=== PATIENT | male | born 2000 | race Caucasian/White ===

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

== ENCOUNTER 2022-02-08 12:30 | Emergency (ER) | payer BC ==
[~2022-02-08] VITALS: Ht 173 cm; Wt 54.4 kg
[2022-02-08 12:48] VITALS: BP 124/85
--- NOTE | 2022-02-08 13:31 | Diagnostic Imaging Report ---
EXAM: FINGER(S) INDICATION: Right thumb injury and pain. COMPARISON: None. FINDINGS: No fracture or malalignment. Soft tissue shadows are unremarkable. IMPRESSION: Negative right thumb radiographs. Dictated by: Dictated on workstation # [id number]
--- NOTE | 2022-02-08 13:38 | ED Upper Extremity ---
General Chief Complaint: Upper Extremity Stated Complaint: RIGHT THUMB INJURY Nursing Triage Note: pt ambulatory to room. pt states he was fishing approx 30 mins ago when his line got caught on a tree, sprung back, and the weight on the line hit his right thumb knuckle. no fish hook involvement. Source: patient Exam Limitations: no limitations History of Present Illness Date Seen by Provider: Feb 08, 2022 Time Seen by Provider: 13:36 Allergies and Home Medications Allergies Coded Allergies: diphenhydramine (Unverified Allergy, Unknown, 03/01/14) difficulty breathing ibuprofen (Verified Allergy, Unknown, 07/01/17) oseltamivir phosphate (Unverified Allergy, Unknown, 09/13/13) Patient Home Medication List Albuterol Sulfate (Albuterol Sulfate) 2.5 Mg/3 Ml Vial.neb, 2.5 MG IH Q4H PRN for SHORTNESS OF BREATH Prescribed by: CRISTOPHER CUMMINS on 07/01/17 182 Budesonide (Budesonide) 0.5 Mg/2 Ml Ampul.neb, 2 ML INH BID, (Reported) Entered as Reported by: MRAIANA MALONE on 08/05/15 194 Cromolyn Sodium (Cromolyn Sodium) 20 Mg/1 Ml Solution, (Reported) Entered as Reported by: DAWIT ROSAS on 09/24/172319 Fludrocortisone Acetate (Fludrocortisone Acetate) 0.1 Mg Tab, (Reported) Entered as Reported by: DAWIT ROSAS on 09/24/17 232 Hyoscyamine Sulfate (Levsin-Sl) 0.125 Mg Tab.subl, 0.125 MG SL Q6H PRN for SPASMS Prescribed by: CRISTOPHER CUMMINS on 04/06/16 171 Hyoscyamine Sulfate (Hyoscyamine Sulfate) 0.125 Mg Tab.subl, 0.125 MG SL Q4H PRN for CRAMPS Prescribed by: RD VERAS on 02/29/202019 Ipratropium/Albuterol Sulfate (Iprat-Albut 0.5-3(2.5) mg/3 ml) 3 Ml Ampul.neb, 3 ML IH Q6H PRN for SHORTNESS OF BREATH Prescribed by: LIU COPELAND on 08/05/15 231 Levalbuterol HCl (Levalbuterol HCl) 0.63 Mg/3 Ml Vial.neb, 0.63 MG IH BID, (Reported) Entered as Reported by: MARIANA MALONE on 08/05/151945 Levocetirizine Dihydrochloride (Levocetirizine Dihydrochloride) 5 Mg Tablet, 5 MG PO DAILY, (Reported) Entered as Reported by: LO GRAY on 03/01/142235 Levocetirizine Dihydrochloride (Xyzal) 5 Mg Tablet, 5 MG PO DAILY, (Reported) Entered as Reported by: MARIANA MALONE on 08/05/151945 Omeprazole (Omeprazole) 40 Mg Capsule.dr, 40 MG PO DAILY Prescribed by: CRISTOPHER CUMMINS on 04/06/16 171 Prednisone (Prednisone) 20 Mg Tab, 20 MG PO BID Prescribed by: LIU COPELAND on 08/05/15 231 Prednisone (Prednisone) 20 Mg Tab, 40 MG PO DAILY Prescribed by: CRISTOPHER CUMMINS on 07/01/171822 Promethazine HCl/Codeine (Promethazine-Codeine Syrup) 118 Ml Syrup, 5 ML PO Q6H PRN for COUGH Prescribed by: CRISTOPHER CUMMINS on 07/01/171822 Topiramate (Topiramate) 25 Mg Tablet, 1 TAB PO BID, (Reported) Entered as Reported by: MARIANA MALONE on 08/05/151945 Past Ogvzwrq-Sgvpqb-Hftqiw Hx Immunizations Up To Date Tetanus Booster (TDap): More than 5yrs PED Vaccines UTD: Yes Seasonal Allergies Seasonal Allergies: Yes Past Medical History Surgeries: Yes (HEART ABLATION) Abdominal, Adenoidectomy, Ear Surgery, Orthopedic, Tonsillectomy Respiratory: No Asthma Currently Using CPAP: No Currently Using BIPAP: No Cardiac: Yes Irregular Heartbeat Neurological: No Reproductive Disorders: No Sexually Transmitted Disease: No HIV/AIDS: No Genitourinary: No Gastrointestinal: Yes Ulcer Musculoskeletal: No Fractures Endocrine: No HEENT: No Chronic Ear Infection, Tonsilitis Hearing Impairment: Denies Cancer: No Psychosocial: No Integumentary: No Blood Disorders: No Family Medical History Alcoholism 03 FATHER (grandfather and grandmother) Cancer 03 FATHER (grandparent) 03 MOTHER (grandfather) Family history: Arthritis 03 FATHER (grandfather) History of drug abuse 03 FATHER (grandparents ETOH:) Kidney disease 03 FATHER (father kidney stones) No Family History of: Abdominal aortic aneurysm Aphasia Cancer of colon Cataract Chest pain Congenital heart disease Congestive heart failure Cystic fibrosis Dementia Dysphagia Family history: Allergy Family history: Alzheimer's disease Family history: Asthma Family history: Cardiovascular disease Family history: Coronary thrombosis Family history: Diabetes mellitus Family history: Gastrointestinal disease Family history: Glaucoma Family history: Hypertension Family history: Osteoporosis Family history: Thyroid disorder Hearing loss Human immunodeficiency virus (HIV) seropositivity Hypercholesterolemia Infertile Myocardial infarction Parkinson's disease Prostate cancer Psychotic disorder Seizure disorder Stroke Tuberculosis Visual impairment No Pertinent Family Hx Physical Exam Vital Signs Vital Signs - First Documented 02/08/22 12:48 Temp 36.7 Pulse 98 Resp 16 B/P (MAP) 124/85 (98) Pulse Ox 98 Capillary Refill : Height, Weight, BMI Height: 5'10.00" Weight: 140lbs. oz. 63.888465js; 18.00 BMI Method:Stated Progress/Results/Core Measures Results/Orders My Orders Orders - LEDA COOMBS APRN Finger(S) (02/08/22 12:42) Vital Signs/I&O 02/08/22 12:48 Temp 36.7 Pulse 98 Resp 16 B/P (MAP) 124/85 (98) Pulse Ox 98 Blood Pressure Mean: 98 Departure Impression Primary Impression: Contusion of thumb, right Disposition: 01 HOME, SELF-CARE Condition: Improved Departure-Patient Inst. Decision time for Depature: 13:37 Referrals: NO,LOCAL PHYSICIAN (PCP/Family) Primary Care Physician Patient Instructions: Contusion (DC) Add. Discharge Instructions: Plan: 1. Discharge home. 2. Keep affected site elevated above your heart over the next 72 hours to reduce swelling and pain. This is when the most swelling will occur. 3. If extremity becomes numb, cold, more painful, blanched or discolored or excessively swollen, contact your physician or return to the ER. 4. May take Tylenol or Ibuprofen as needed for pain per package. 5. Return to ER for any new, concerning, or worsening symptoms. All discharge instructions reviewed with patient and/or family. Voiced understanding. LEDA COOMBS APRN Feb 08, 2022 13:38
== END 2022-02-08 14:07 | disposition home or self-care (01) ==
LOC: EDUNIT# 12:30 → ER 12:33
DX: S60.011A Contusion of right thumb without damage to nail, initial encounter (principal); Z28.310 Unvaccinated for COVID-19; W22.8XXA Striking against or struck by other objects, initial encounter
CPT/HCPCS: 73140

== ENCOUNTER 2022-09-14 18:30 | Emergency (ER) | payer BC ==
[~2022-09-14] VITALS: Ht 175 cm; Wt 52.0 kg
--- NOTE | 2022-09-14 18:52 | ED Chest Pain ---
General Chief Complaint: Chest Pain Stated Complaint: CHEST PAIN Nursing Triage Note: PT AMB TO RM 3 PT CO OF INTERMITTENT CHEST PAIN FOR APPROX 2 DAYS, PT HAS HX OF SVT AND HAS HAD AN ABLATION APPROX 4 YEARS AGO. PT RATES PAIN 4/10 LAST FOR ONLY A FEW SECONDS, STATES FEELS LIKE HEART IS FALLING DOWN IN CHEST. PAST 2 DAYS HAS HAD SOA. PT HAS BEEN TRAVELING IN CAR APPROX 10 HOURS TODAY Source: patient Exam Limitations: no limitations (BRIA GARG APRN) History of Present Illness Date Seen by Provider: Sep 14, 2022 Time Seen by Provider: 18:35 Initial Comments 22-year-old male presents to the ED with complaints of intermittent left sided chest pain over the last 2 days. Reports the pain feels like a pulled muscle, states it only lasts about a minute at a time. Reports feeling sweaty with the chest pain. He currently does not have any pain. He also reports feeling like his heart rate drops when he is walking around. When this happens he feels lightheaded and feels like he needs to cough. Denies fevers, abdominal pain, vomiting. Reports feeling shortness of air yesterday, none today. Reports some nausea. Past medical history includes asthma, SVT, abdominal issues including C. difficile multiple times, H. pylori, IBS. He has had an ablation for SVT 4 years ago and multiple colonoscopies. (BRIA GARG APRN) Allergies and Home Medications Allergies Coded Allergies: diphenhydramine (Unverified Allergy, Unknown, 03/01/14) difficulty breathing ibuprofen (Verified Allergy, Unknown, 07/01/17) oseltamivir phosphate (Unverified Allergy, Unknown, 09/13/13) Patient Home Medication List Home Medication List Reviewed: Yes (BRIA GARG APRN) Home Medication List Reviewed: Yes (BARB MARMOLEJO DO) Albuterol Sulfate (Albuterol Sulfate) 2.5 Mg/3 Ml Vial.neb, 2.5 MG IH Q4H PRN for SHORTNESS OF BREATH Prescribed by: CRISTOPHER CUMMINS on 07/01/171822 Budesonide (Budesonide) 0.5 Mg/2 Ml Ampul.neb, 2 ML INH BID, (Reported) Entered as Reported by: MARIANA MALONE on 08/05/151945 Cromolyn Sodium (Cromolyn Sodium) 20 Mg/1 Ml Solution, (Reported) Entered as Reported by: DAWIT ROSAS on 09/24/172319 Fludrocortisone Acetate (Fludrocortisone Acetate) 0.1 Mg Tab, (Reported) Entered as Reported by: DAWIT ROSAS on 09/24/172319 Hyoscyamine Sulfate (Levsin-Sl) 0.125 Mg Tab.subl, 0.125 MG SL Q6H PRN for SPASMS Prescribed by: CRISTOPHER CUMMINS on 04/06/161715 Hyoscyamine Sulfate (Hyoscyamine Sulfate) 0.125 Mg Tab.subl, 0.125 MG SL Q4H PRN for CRAMPS Prescribed by: DR VERAS on 02/29/202019 Ipratropium/Albuterol Sulfate (Iprat-Albut 0.5-3(2.5) mg/3 ml) 3 Ml Ampul.neb, 3 ML IH Q6H PRN for SHORTNESS OF BREATH Prescribed by: LIU COPELAND on 08/05/152314 Levalbuterol HCl (Levalbuterol HCl) 0.63 Mg/3 Ml Vial.neb, 0.63 MG IH BID, (Reported) Entered as Reported by: MARIANA MALONE on 08/05/151945 Levocetirizine Dihydrochloride (Levocetirizine Dihydrochloride) 5 Mg Tablet, 5 MG PO DAILY, (Reported) Entered as Reported by: LO GRAY on 03/01/142235 Levocetirizine Dihydrochloride (Xyzal) 5 Mg Tablet, 5 MG PO DAILY, (Reported) Entered as Reported by: MARIANA MALONE on 08/05/151945 Omeprazole (Omeprazole) 40 Mg Capsule.dr, 40 MG PO DAILY Prescribed by: CRISTOPHER CUMMINS on 04/06/161715 Prednisone (Prednisone) 20 Mg Tab, 20 MG PO BID Prescribed by: LIU COPELAND on 08/05/152314 Prednisone (Prednisone) 20 Mg Tab, 40 MG PO DAILY Prescribed by: CRISTOPHER CUMMINS on 07/01/171822 Promethazine HCl/Codeine (Promethazine-Codeine Syrup) 118 Ml Syrup, 5 ML PO Q6H PRN for COUGH Prescribed by: CRISTOPHER CUMMINS on 07/01/171822 Topiramate (Topiramate) 25 Mg Tablet, 1 TAB PO BID, (Reported) Entered as Reported by: MARIANA MALONE on 08/05/151945 Review of Systems Review of Systems Constitutional: see HPI (BRIA GARG APRN) Past Hbosofb-Lrxibo-Kxpegk Hx Patient Social History Tobacco Use?: No Substance use?: No Alcohol Use?: No Pt feels they are or have been: No (BRIA GARG APRN) Immunizations Up To Date Tetanus Booster (TDap): More than 5yrs PED Vaccines UTD: Yes Influenza Vaccine Up-to-Date: No; Not Current (BRIA GARG APRN) Seasonal Allergies Seasonal Allergies: Yes (BRIA GARG APRN) Past Medical History Surgery/Hospitalization HX: HEART ABLATION, T AND A Surgeries: Yes (HEART ABLATION) Abdominal, Adenoidectomy, Ear Surgery, Orthopedic, Tonsillectomy Respiratory: No Asthma Currently Using CPAP: No Currently Using BIPAP: No Cardiac: Yes Irregular Heartbeat Neurological: No Reproductive Disorders: No Sexually Transmitted Disease: No HIV/AIDS: No Genitourinary: No Gastrointestinal: Yes Ulcer Musculoskeletal: No Fractures Endocrine: No HEENT: No Chronic Ear Infection, Tonsilitis Hearing Impairment: Denies Cancer: No Psychosocial: No Integumentary: No Blood Disorders: No (BRIA GARG APRN) Family Medical History Alcoholism 03 FATHER (grandfather and grandmother) Cancer 03 FATHER (grandparent) 03 MOTHER (grandfather) Family history: Arthritis 03 FATHER (grandfather) History of drug abuse 03 FATHER (grandparents ETOH:) Kidney disease 03 FATHER (father kidney stones) No Family History of: Abdominal aortic aneurysm Aphasia Cancer of colon Cataract Chest pain Congenital heart disease Congestive heart failure Cystic fibrosis Dementia Dysphagia Family history: Allergy Family history: Alzheimer's disease Family history: Asthma Family history: Cardiovascular disease Family history: Coronary thrombosis Family history: Diabetes mellitus Family history: Gastrointestinal disease Family history: Glaucoma Family history: Hypertension Family history: Osteoporosis Family history: Thyroid disorder Hearing loss Human immunodeficiency virus (HIV) seropositivity Hypercholesterolemia Infertile Myocardial infarction Parkinson's disease Prostate cancer Psychotic disorder Seizure disorder Stroke Tuberculosis Visual impairment No Pertinent Family Hx (BRIA GARG APRN) Physical Exam Vital Signs Vital Signs - First Documented 09/14/22 18:30 Temp 36.6 Pulse 94 Resp 16 B/P (MAP) 155/93 (113) Pulse Ox 99 (JALEELBARB Ezio DO) Vital Signs Capillary Refill : NONE (BRIA GARG APRN) Height, Weight, BMI Height: 5'10.00" Weight: 140lbs. oz. 63.846621ty; 16.00 BMI Method:Stated General Appearance: No Apparent Distress, WD/WN Neck: Non Tender, Supple Respiratory: Chest Non Tender, Lungs Clear, Normal Breath Sounds, No Accessory Muscle Use, No Respiratory Distress Cardiovascular: Regular Rate, Rhythm, No Edema, No Gallop, No JVD, No Murmur Extremity: Normal Capillary Refill, Normal Range of Motion 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: Alert, No Motor/Sensory Deficits Skin: Normal Color, Warm/Dry (BRIA GARG APRN) Progress/Results/Core Measures Results/Orders Lab Results Laboratory Tests Test 09/14/22 18:39 09/14/22 21:21 Range/Units White Blood Count 5.4 4.3-11.0 10^3/uL Red Blood Count 5.07 4.30-5.52 10^6/uL Hemoglobin 15.2 13.3-17.7 g/dL Hematocrit 44 40-54 % Mean Corpuscular Volume 87 80-99 fL Mean Corpuscular Hemoglobin 30 25-34 pg Mean Corpuscular Hemoglobin Concent 35 32-36 g/dL Red Cell Distribution Width 11.8 10.0-14.5 % Platelet Count 201 130-400 10^3/uL Mean Platelet Volume 11.5 9.0-12.2 fL Immature Granulocyte % (Auto) 0 % Neutrophils (%) (Auto) 58 42-75 % Lymphocytes (%) (Auto) 34 12-44 % Monocytes (%) (Auto) 7 0-12 % Eosinophils (%) (Auto) 1 0-10 % Basophils (%) (Auto) 0 0-10 % Neutrophils # (Auto) 3.1 1.8-7.8 10^3/uL Lymphocytes # (Auto) 1.8 1.0-4.0 10^3/uL Monocytes # (Auto) 0.4 0.0-1.0 10^3/uL Eosinophils # (Auto) 0.1 0.0-0.3 10^3/uL Basophils # (Auto) 0.0 0.0-0.1 10^3/uL Immature Granulocyte # (Auto) 0.0 0.0-0.1 10^3/uL Prothrombin Time 13.6 12.2-14.7 SEC INR Comment 1.0 0.8-1.4 Activated Partial Thromboplast Time 34 24-35 SEC D-Dimer <= 0.27 0.00-0.49 UG/ML Sodium Level 140 135-145 MMOL/L Potassium Level 3.7 3.6-5.0 MMOL/L Chloride Level 105 98-107 MMOL/L Carbon Dioxide Level 23 21-32 MMOL/L Anion Gap 12 5-14 MMOL/L Blood Urea Nitrogen 11 7-18 MG/DL Creatinine 0.92 0.60-1.30 MG/DL Estimat Glomerular Filtration Rate 122 BUN/Creatinine Ratio 12 Glucose Level 89 70-105 MG/DL Calcium Level 9.3 8.5-10.1 MG/DL Corrected Calcium 8.5-10.1 MG/DL Magnesium Level 2.4 1.6-2.4 MG/DL Total Bilirubin 0.9 0.1-1.0 MG/DL Aspartate Amino Transf (AST/SGOT) 17 5-34 U/L Alanine Aminotransferase (ALT/SGPT) 15 0-55 U/L Alkaline Phosphatase 60 40-136 U/L Troponin I < 0.028 < 0.028 <0.028 NG/ML Total Protein 7.1 6.4-8.2 GM/DL Albumin 4.7 H 3.2-4.5 GM/DL (JALEEL,BARB K DO) Vital Signs/I&O 09/14/22 18:30 Temp 36.6 Pulse 94 Resp 16 B/P (MAP) 155/93 (113) Pulse Ox 99 (JALEEL,BARB K DO) Blood Pressure Mean: 113 Progress Progress Note : Time: 18:52 Progress Note Patient seen and evaluated, resting comfortably bed, no acute distress. Based on exam and symptoms, work-up initially including CBC, CMP, magnesium, coags, troponin, D-dimer, chest x-ray. 2049 Labs reviewed. CBC grossly normal. CMP grossly normal. Magnesium normal2.4. Coas normal. D-dimer negative. Inital troponin negative. Will repeat 3-hour troponin at 2130. X-ray reviewed, no acute abnormalities. Results discussed with patient and father. (BRIA GARG APRN) Progress Note : Progress Note 2100--ASSUMED CARE OF PT AT END OF SHIFT. REPEAT TROPONIN IS PENDING. PT IS SYMPTOM-FREE AT THIS TIME. VITALS ARE STABLE. 2210--REPEAT TROPONIN IS NEGATIVE. PT IS SYMPTOM-FREE, HE HAS NORMAL VITALS, AND NO ARRHYTHMIAS. REVIEWED PRIOR RECORDS, INCLUDING ER VISITS, TESTS/PROCEDURES DISCUSSED TEST RESULTS WITH PT AND FATHER, THEY FEEL COMFORTABLE GOING HOME (BARB MARMOLEJO DO) Initial ECG Impression Date: Sep 14, 2022 Initial ECG Impression Time: 18:36 Initial ECG Rate: 86 Initial ECG Rhythm: Normal Sinus Initial ECG Intervals: Normal Initial ECG Impression: Normal Initial ECG Comparisson: Unchanged (BRIA GARG APRN) Diagnostic Imaging Diagonstic Imaging: Xray Plain Films/CT/US/NM/MRI: chest Comments [facility], [place] NAME: ROSANNE KIRBY [facility] REC#: [id number] PT STATUS: REG ER : 2002 PHYSICIAN: BRIA GARG APRN ADMIT DATE: 09/14/22/ER Signed Date of Exam:09/14/22 CHEST 1 VIEW, AP/PA ONLY EXAMINATION: Chest 1 view. HISTORY: Chest pain. COMPARISON: 07/30/2017. FINDINGS: The lungs are clear without edema or pneumonia. No pleural effusion or pneumothorax. Heart size is normal. IMPRESSION: Clear lungs. Dictated by: Dictated on workstation # [id number] Dict: 09/14/221929 Trans: 09/14/222010 PJE [id number] Interpreted by: GRAYSON CORCORAN MD Electronically signed by: GRAYSON CORCORAN MD 09/14/222010 (BRIA GARG APRN) Departure Impression Primary Impression: Chest pain Additional Impression: HX OF SVT--S/P ABLATION Disposition: 01 HOME, SELF-CARE Condition: Stable Departure-Patient Inst. Decision time for Depature: 22:15 (BARB MARMOLEJO DO) Referrals: NO,LOCAL PHYSICIAN (PCP/Family) Primary Care Physician Patient Instructions: Chest Pain, Adult ED Add. Discharge Instructions: HOME, REST NO STRENUOUS ACTIVITY FOR THE NEXT 2 DAYS, IF YOU ARE SYMPTOM-FREE, THEN YOU MAY RETURN TO NORMAL ACTIVITIES ON THURSDAY RETURN TO ER IF SYMPTOMS RETURN All discharge instructions reviewed with patient and/or family. Voiced understanding. BRIA GARG APRN Sep 14, 2022 18:52 BARB MARMOLEJO DO Sep 14, 2022 21:51
[2022-09-14 18:54] LABS: BASOPHILS % (AUTO) 0 % (0-10); EOSINOPHILS # (AUTO) 0.1 10^3/uL (0.0-0.3); EOSINOPHILS % (AUTO) 1 % (0-10); HEMATOCRIT 44 % (40-54); HEMOGLOBIN 15.2 g/dL (13.3-17.7); LYMPHOCYTES # (AUTO) 1.8 10^3/uL (1.0-4.0); LYMPHOCYTES % (AUTO) 34 % (12-44); MEAN CORPUSCULAR HEMOGLOBIN 30 pg (25-34); MEAN CORPUSCULAR HGB CONC 35 g/dL (32-36); MEAN CORPUSCULAR VOLUME 87 fL (80-99); MEAN PLATELET VOLUME 11.5 fL (9.0-12.2); MONOCYTES # (AUTO) 0.4 10^3/uL (0.0-1.0); MONOCYTES % (AUTO) 7 % (0-12); NEUTROPHILS # (AUTO) 3.1 10^3/uL (1.8-7.8); NEUTROPHILS % (AUTO) 58 % (42-75); PLATELET COUNT 201 10^3/uL (130-400); WHITE BLOOD COUNT 5.4 10^3/uL (4.3-11.0)
[2022-09-14 18:57] LABS: ALBUMIN 4.7 GM/DL (3.2-4.5); CHLORIDE 105 MMOL/L (98-107); POTASSIUM 3.7 MMOL/L (3.6-5.0); SODIUM 140 MMOL/L (135-145)
[2022-09-14 18:59] LABS: CALCIUM 9.3 MG/DL (8.5-10.1)
[2022-09-14 19:00] LABS: GLUCOSE 89 MG/DL (70-105); TOTAL PROTEIN 7.1 GM/DL (6.4-8.2)
[2022-09-14 19:01] LABS: CARBON DIOXIDE 23 MMOL/L (21-32)
[2022-09-14 19:02] LABS: BILIRUBIN,TOTAL 0.9 MG/DL (0.1-1.0)
[2022-09-14 19:03] LABS: ALKALINE PHOSPHATASE 60 U/L (40-136); CREATININE SERUM 0.92 MG/DL (0.60-1.30); GFR ESTIMATED 122
[2022-09-14 19:04] LABS: BUN/CREATININE RATIO 12
[2022-09-14 19:06] LABS: ALANINE AMINOTRANSFERASE 15 U/L (0-55); MAGNESIUM 2.4 MG/DL (1.6-2.4)
[2022-09-14 19:08] LABS: PROTHROMBIN TIME PATIENT 13.6 SEC (12.2-14.7)
--- NOTE | 2022-09-14 19:33 | Diagnostic Imaging Report ---
EXAMINATION: Chest 1 view. HISTORY: Chest pain. COMPARISON: 07/30/2017. FINDINGS: The lungs are clear without edema or pneumonia. No pleural effusion or pneumothorax. Heart size is normal. IMPRESSION: Clear lungs. Dictated by: Dictated on workstation # [id number]
[2022-09-14 22:27] VITALS: BP 122/76
== END 2022-09-14 22:27 | disposition home or self-care (01) ==
LOC: EDUNIT# 18:30 → ER 18:31
DX: R07.89 Other chest pain (principal); R11.0 Nausea; Z86.79 Personal history of other diseases of the circulatory system; Z98.890 Other specified postprocedural states
CPT/HCPCS: 36415; 71045; 80053; 83735; 84484; 85025; 85379; 85610; 85730; 93005; 93041

== ENCOUNTER 2022-12-12 00:40 | Emergency (ER) | payer BC | END 2022-12-12 01:02 | disposition left against medical advice (07) | LOC: EDUNIT# 00:40 → ER 00:45 | DX: R10.9 Unspecified abdominal pain (principal) ==

== ENCOUNTER 2022-12-16 08:45 | Emergency (ER) | payer BC ==
[~2022-12-16] VITALS: Ht 175 cm; Wt 55.0 kg
--- NOTE | 2022-12-16 08:55 | ED EENT ---
History of Present Illness General Chief Complaint: Ear Problems Stated Complaint: RIGHT EAR PAIN Source: patient Exam Limitations: no limitations History of Present Illness Date Seen by Provider: Dec 16, 2022 Time Seen by Provider: 08:54 Initial Comments Patient is a 22-year-old male who presents to the emergency department with a chief complaint of severe right ear pain. He went swimming on Thursday and got water in his ear. He states he was fine until last evening when he sneezed or coughed and had acute onset of ear pain. He states he was unable to sleep last night due to the pain. Denies fevers or chills. He does take allergy medications. He did take a Tylenol last night. Dad is with him and states that he had ear tubes as a small child. Timing/Duration: abrupt Location: ear (R) Prearrival Treatment: no prearrival treatment Associated Symptoms: change in hearing Allergies and Home Medications Allergies Coded Allergies: diphenhydramine (Unverified Allergy, Unknown, 03/01/14) difficulty breathing ibuprofen (Verified Allergy, Unknown, 07/01/17) oseltamivir phosphate (Unverified Allergy, Unknown, 09/13/13) Patient Home Medication List Home Medication List Reviewed: Yes Albuterol Sulfate (Albuterol Sulfate) 2.5 Mg/3 Ml Vial.neb, 2.5 MG IH Q4H PRN for SHORTNESS OF BREATH Prescribed by: CRISTOPHER CUMMINS on 07/01/171822 Budesonide (Budesonide) 0.5 Mg/2 Ml Ampul.neb, 2 ML INH BID, (Reported) Entered as Reported by: MARIANA MALONE on 08/05/15 194 Cromolyn Sodium (Cromolyn Sodium) 20 Mg/1 Ml Solution, (Reported) Entered as Reported by: DAWIT ROSAS on 09/24/17 232 Fludrocortisone Acetate (Fludrocortisone Acetate) 0.1 Mg Tab, (Reported) Entered as Reported by: DAWIT ROSAS on 09/24/17 232 Hyoscyamine Sulfate (Levsin-Sl) 0.125 Mg Tab.subl, 0.125 MG SL Q6H PRN for SPASMS Prescribed by: CRISTOPHER CUMMINS on 04/06/16 1716 Hyoscyamine Sulfate (Hyoscyamine Sulfate) 0.125 Mg Tab.subl, 0.125 MG SL Q4H PRN for CRAMPS Prescribed by: RD VERAS on 02/29/202019 Ipratropium/Albuterol Sulfate (Iprat-Albut 0.5-3(2.5) mg/3 ml) 3 Ml Ampul.neb, 3 ML IH Q6H PRN for SHORTNESS OF BREATH Prescribed by: LIU COPELAND on 08/05/152314 Levalbuterol HCl (Levalbuterol HCl) 0.63 Mg/3 Ml Vial.neb, 0.63 MG IH BID, (Reported) Entered as Reported by: MARIANA MALONE on 08/05/151945 Levocetirizine Dihydrochloride (Levocetirizine Dihydrochloride) 5 Mg Tablet, 5 MG PO DAILY, (Reported) Entered as Reported by: LO GRAY on 03/01/142235 Levocetirizine Dihydrochloride (Xyzal) 5 Mg Tablet, 5 MG PO DAILY, (Reported) Entered as Reported by: MARIANA MALONE on 08/05/151945 Omeprazole (Omeprazole) 40 Mg Capsule.dr, 40 MG PO DAILY Prescribed by: CRISTOPHER CUMMINS on 04/06/16 171 Prednisone (Prednisone) 20 Mg Tab, 20 MG PO BID Prescribed by: LUI COPELAND on 08/05/152314 Prednisone (Prednisone) 20 Mg Tab, 40 MG PO DAILY Prescribed by: CRISTOPHER CUMMINS on 07/01/171822 Promethazine HCl/Codeine (Promethazine-Codeine Syrup) 118 Ml Syrup, 5 ML PO Q6H PRN for COUGH Prescribed by: CRISTOPHER CUMMINS on 07/01/171822 Topiramate (Topiramate) 25 Mg Tablet, 1 TAB PO BID, (Reported) Entered as Reported by: MARIANA MALONE on 08/05/151945 Review of Systems Review of Systems Constitutional: see HPI Ears: Pain Nose: no symptoms reported Respiratory: no symptoms reported Cardiovascular: no symptoms reported Gastrointestinal: nausea Musculoskeletal: no symptoms reported Skin: no symptoms reported Neurological: No Symptoms Reported Past Rfsdttb-Ialhzu-Vdgpbf Hx Immunizations Up To Date Tetanus Booster (TDap): More than 5yrs PED Vaccines UTD: Yes Seasonal Allergies Seasonal Allergies: Yes Past Medical History Surgery/Hospitalization HX: HEART ABLATION, T AND A Surgeries: Yes (HEART ABLATION) Abdominal, Adenoidectomy, Ear Surgery, Orthopedic, Tonsillectomy Respiratory: No Asthma Currently Using CPAP: No Currently Using BIPAP: No Cardiac: Yes Irregular Heartbeat Neurological: No Reproductive Disorders: No Sexually Transmitted Disease: No HIV/AIDS: No Genitourinary: No Gastrointestinal: Yes Ulcer Musculoskeletal: No Fractures Endocrine: No HEENT: No Chronic Ear Infection, Tonsilitis Hearing Impairment: Denies Cancer: No Psychosocial: No Integumentary: No Blood Disorders: No Family Medical History Alcoholism 03 FATHER (grandfather and grandmother) Cancer 03 FATHER (grandparent) 03 MOTHER (grandfather) Family history: Arthritis 03 FATHER (grandfather) History of drug abuse 03 FATHER (grandparents ETOH:) Kidney disease 03 FATHER (father kidney stones) No Family History of: Abdominal aortic aneurysm Aphasia Cancer of colon Cataract Chest pain Congenital heart disease Congestive heart failure Cystic fibrosis Dementia Dysphagia Family history: Allergy Family history: Alzheimer's disease Family history: Asthma Family history: Cardiovascular disease Family history: Coronary thrombosis Family history: Diabetes mellitus Family history: Gastrointestinal disease Family history: Glaucoma Family history: Hypertension Family history: Osteoporosis Family history: Thyroid disorder Hearing loss Human immunodeficiency virus (HIV) seropositivity Hypercholesterolemia Infertile Myocardial infarction Parkinson's disease Prostate cancer Psychotic disorder Seizure disorder Stroke Tuberculosis Visual impairment No Pertinent Family Hx Physical Exam Vital Signs Vital Signs - First Documented 12/16/22 08:53 Temp 36.4 Pulse 88 Resp 18 B/P (MAP) 116/79 (91) Pulse Ox 96 Height, Weight, BMI Height: 5'10.00" Weight: 140lbs. oz. 63.205246ny; 16.00 BMI Method:Stated General Appearance: WD/WN Eyes: bilateral eye normal inspection, bilateral eye PERRL, bilateral eye EOMI Ears: right ear other (Significant impaction right ear); left ear auricle normal, left ear foreign body (Completely obscured TM on the left secondary to cerumen impaction visualized portions of the eardrum are normal) Neck: non-tender, full range of motion, supple Respiratory: no respiratory distress, no accessory muscle use 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: alert, normal mood/affect, oriented x 3 Skin: normal color, warm/dry Procedures/Interventions Eye : Eye Irrigated w/ Saline (ccs): 100 Progress/Results/Core Measures Results/Orders My Orders Orders - ELOY SALAZAR MD Docusate Sodium Oral Solution (Colace Or (12/16/22 09:15) Medications Given in ED Current Medications Medications Dose Ordered Sig/Ernestina Route Start Time Stop Time Status Last Admin Dose Admin Docusate Sodium 50 mg ONCE ONCE EACH EAR 12/16/22 09:15 12/16/22 09:16 DC 12/16/22 09:14 50 MG Vital Signs/I&O 12/16/22 08:53 Temp 36.4 Pulse 88 Resp 18 B/P (MAP) 116/79 (91) Pulse Ox 96 Progress Progress Note : Time: 10:53 Progress Note After Irrigation after Colace drops the right ear was irrigated until clear. The tympanic membrane is very erythematous slightly distended. Will Rx antibiotics (with c diff precautions as he has a history of c diff) Departure Impression Primary Impression: Impacted cerumen Qualified Codes: H61.21 - Impacted cerumen, right ear Additional Impressions: Otalgia of right ear Otitis media Qualified Codes: H66.90 - Otitis media, unspecified, unspecified ear Disposition: 01 HOME, SELF-CARE Condition: Improved Departure-Patient Inst. Decision time for Depature: 09:04 Referrals: KEN PRATHER (PCP/Family) Primary Care Physician Patient Instructions: Ear Wax Impaction ED Add. Discharge Instructions: You can use over the counter ear wax removal medication (I believe it is called Murine or Dobrox). Please follow packaging instructions. You can take over the counter Ibuprofen 2-3 pills (400-600mg) every 6 hours as needed for pain. Always take Ibuprofen with food. Return to the emergency department for any new, concerning or emergent complaints. Scripts Amoxicillin (Amoxicillin) 875 Mg Tablet 875 MG PO BID for 7 Days, #14 TAB Prov: ELOY SALAZAR MD 12/16/22 ELOY SALAZAR MD Dec 16, 2022 08:54
[2022-12-16] MEDS ORDERED: DOCUSATE SODIUM 10 MG/ML 10 ML UDC (COLACE) EACH EAR ONE (09:15)
[2022-12-16] MEDS ORDERED: AMOX875T2 PO (10:55)
[2022-12-16 10:59] VITALS: BP 116/79
== END 2022-12-16 10:59 | disposition home or self-care (01) ==
LOC: ER 08:45 → EDUNIT# 08:45 → ER 10:59
DX: H61.21 Impacted cerumen, right ear (principal); H66.91 Otitis media, unspecified, right ear
CPT/HCPCS: 99282

== ENCOUNTER 2023-01-25 02:52 | Emergency (ER) | payer BC ==
[~2023-01-25] VITALS: Ht 175 cm; Wt 52.6 kg
[~2023-01-25 02:52] MED LIST changes: +AMOX875T2 PO
[2023-01-25 03:00] VITALS: BP 146/90
[2023-01-25] MEDS ORDERED: SERT-413 (03:07)
--- NOTE | 2023-01-25 03:16 | ED GU-Male ---
General Chief Complaint: - Reproductive Stated Complaint: LUMP ON PENIS Nursing Triage Note: LUMP IN PENIS X2 DAYS. DENIES PAIN\\INJURY. Source: patient History of Present Illness Date Seen by Provider: Jan 25, 2023 Time Seen by Provider: 03:00 Initial Comments PT ARRIVES VIA POV FROM HOME WITH FATHER C/O A LUMP IN HIS PENIS X 2 DAYS IT HAS BEEN A LITTLE SORE AT TIMES NO INJURY NO REDNESS OR SWELLING TO THE AREA NO PROBLEMS URINATING NO ABDOMINAL PAIN NO TESTICULAR PAIN NO FEVER NO HISTORY OF SIMILAR PCP: ASHLEE PRATHER Allergies and Home Medications Allergies Coded Allergies: diphenhydramine (Unverified Allergy, Unknown, 03/01/14) difficulty breathing ibuprofen (Verified Allergy, Unknown, 07/01/17) oseltamivir phosphate (Unverified Allergy, Unknown, 09/13/13) Patient Home Medication List Home Medication List Reviewed: Yes Levocetirizine Dihydrochloride (Xyzal) 5 Mg Tablet, 5 MG PO DAILY, (Reported) Entered as Reported by: MARIANA MALONE on 08/05/151945 Sertraline HCl (Sertraline HCl) 50 Mg Tablet, (Reported) Entered as Reported by: MARIANA MALONE on 01/25/23 0307 Last Action: New Order Discontinued Medications Albuterol Sulfate (Albuterol Sulfate) 2.5 Mg/3 Ml Vial.neb, 2.5 MG IH Q4H PRN for SHORTNESS OF BREATH Discontinued Reason: No Longer Taking Prescribed by: CRISTOPHER CUMMINS on 07/01/17 1823 Last Action: Discontinued Amoxicillin (Amoxicillin) 875 Mg Tablet, 875 MG PO BID Discontinued Reason: No Longer Taking Prescribed by: ELOY SALAZAR on 12/16/22 1055 Last Action: Discontinued Budesonide (Budesonide) 0.5 Mg/2 Ml Ampul.neb, 2 ML INH BID, (Reported) Discontinued Reason: No Longer Taking Entered as Reported by: MARIANA MALONE on 08/05/151945 Last Action: Discontinued Cromolyn Sodium (Cromolyn Sodium) 20 Mg/1 Ml Solution, (Reported) Discontinued Reason: No Longer Taking Entered as Reported by: DAWIT ROSAS on 09/24/17 2320 Last Action: Discontinued Fludrocortisone Acetate (Fludrocortisone Acetate) 0.1 Mg Tab, (Reported) Discontinued Reason: No Longer Taking Entered as Reported by: DAWIT ROSAS on 09/24/17 2320 Last Action: Discontinued Hyoscyamine Sulfate (Levsin-Sl) 0.125 Mg Tab.subl, 0.125 MG SL Q6H PRN for SPASMS Discontinued Reason: No Longer Taking Prescribed by: CRISTOPHER CUMMINS on 04/06/161715 Last Action: Discontinued Hyoscyamine Sulfate (Hyoscyamine Sulfate) 0.125 Mg Tab.subl, 0.125 MG SL Q4H PRN for CRAMPS Discontinued Reason: No Longer Taking Prescribed by: RD VERAS on 02/29/202019 Last Action: Discontinued Ipratropium/Albuterol Sulfate (Iprat-Albut 0.5-3(2.5) mg/3 ml) 3 Ml Ampul.neb, 3 ML IH Q6H PRN for SHORTNESS OF BREATH Discontinued Reason: No Longer Taking Prescribed by: LIU COPELAND on 08/05/152314 Last Action: Discontinued Levalbuterol HCl (Levalbuterol HCl) 0.63 Mg/3 Ml Vial.neb, 0.63 MG IH BID, (Reported) Discontinued Reason: No Longer Taking Entered as Reported by: MARIANA MALONE on 08/05/151945 Last Action: Discontinued Levocetirizine Dihydrochloride (Levocetirizine Dihydrochloride) 5 Mg Tablet, 5 MG PO DAILY, (Reported) Discontinued Reason: No Longer Taking Entered as Reported by: LO GRAY on 03/01/142235 Last Action: Discontinued Omeprazole (Omeprazole) 40 Mg Capsule.dr, 40 MG PO DAILY Discontinued Reason: No Longer Taking Prescribed by: CRISTOPHER CUMMINS on 04/06/161715 Last Action: Discontinued Prednisone (Prednisone) 20 Mg Tab, 20 MG PO BID Discontinued Reason: No Longer Taking Prescribed by: LIU COPELAND on 08/05/152314 Last Action: Discontinued Prednisone (Prednisone) 20 Mg Tab, 40 MG PO DAILY Discontinued Reason: No Longer Taking Prescribed by: CRISTOPHER CUMMINS on 07/01/17 1823 Last Action: Discontinued Promethazine HCl/Codeine (Promethazine-Codeine Syrup) 118 Ml Syrup, 5 ML PO Q6H PRN for COUGH Discontinued Reason: No Longer Taking Prescribed by: CRISTOPHER CUMMINS on 07/01/171822 Last Action: Discontinued Topiramate (Topiramate) 25 Mg Tablet, 1 TAB PO BID, (Reported) Discontinued Reason: No Longer Taking Entered as Reported by: MARIANA MAOLNE on 08/05/151945 Last Action: Discontinued Review of Systems Review of Systems Constitutional: no symptoms reported Genitourinary: see HPI Past Vhzwarw-Nlupiy-Tiqdst Hx Patient Social History Tobacco Use?: No Substance use?: No Alcohol Use?: No Pt feels they are or have been: No Immunizations Up To Date Tetanus Booster (TDap): More than 5yrs PED Vaccines UTD: Yes Seasonal Allergies Seasonal Allergies: Yes Past Medical History Surgery/Hospitalization HX: CARDIAC ABLATION, T AND A, BMT'S, SVT, GERD Surgeries: Yes (HEART ABLATION) Abdominal, Adenoidectomy, Ear Surgery, Orthopedic, Tonsillectomy Respiratory: No Asthma Currently Using CPAP: No Currently Using BIPAP: No Cardiac: Yes (SVT S/P ABLATION) Irregular Heartbeat Neurological: No Reproductive Disorders: No Sexually Transmitted Disease: No HIV/AIDS: No Genitourinary: No Gastrointestinal: Yes Gastroesophageal Reflux, Ulcer Musculoskeletal: Yes Fractures Endocrine: No HEENT: Yes Chronic Ear Infection, Tonsilitis Hearing Impairment: Denies Cancer: No Psychosocial: No Integumentary: No Blood Disorders: No Family Medical History Alcoholism 03 FATHER (grandfather and grandmother) Cancer 03 FATHER (grandparent) 03 MOTHER (grandfather) Family history: Arthritis 03 FATHER (grandfather) History of drug abuse 03 FATHER (grandparents ETOH:) Kidney disease 03 FATHER (father kidney stones) No Family History of: Abdominal aortic aneurysm Aphasia Cancer of colon Cataract Chest pain Congenital heart disease Congestive heart failure Cystic fibrosis Dementia Dysphagia Family history: Allergy Family history: Alzheimer's disease Family history: Asthma Family history: Cardiovascular disease Family history: Coronary thrombosis Family history: Diabetes mellitus Family history: Gastrointestinal disease Family history: Glaucoma Family history: Hypertension Family history: Osteoporosis Family history: Thyroid disorder Hearing loss Human immunodeficiency virus (HIV) seropositivity Hypercholesterolemia Infertile Myocardial infarction Parkinson's disease Prostate cancer Psychotic disorder Seizure disorder Stroke Tuberculosis Visual impairment No Pertinent Family Hx Physical Exam Vital Signs Vital Signs - First Documented 01/25/23 03:00 Temp 36.8 Pulse 88 Resp 18 B/P (MAP) 146/90 (108) Pulse Ox 99 O2 Delivery Room Air Capillary Refill : Less Than 3 Seconds Height, Weight, BMI Height: 5'10.00" Weight: 140lbs. oz. [id number]; 17.00 BMI Method:Stated General Appearance: WD/WN, thin Gastrointestinal: non tender, soft Male: no hernia; No erythema, No inguinal tenderness, No testicular tenderness; other (BB-SIZED SUB Q, FIRM MOBILE NODULE THAT IS AT THE VELOZ OF THE PENIS. THERE IS NO TENDERNESS. NO OVERLYING SKIN ABNORMALITIES. REMAINDER OF PENIS AND TESTICULAR EXAM IS NORMAL. THERE ARE A FEW TINY BILATERAL INGUINAL NODES--NON-TENDER AND ALL ARE SUB CENTIMETER IN SIZE. NO OVERLYING SKIN CHANGES TO THESE AREAS EITHER. NO PENILE DISCHARGE. ) Skin: normal color, warm/dry; No rash Progress/Results/Core Measures Suspected Sepsis SIRS Temperature: Pulse: 88 Respiratory Rate: 18 Blood Pressure 146 /90 Mean: 108 Results/Orders Vital Signs/I&O 01/25/23 03:00 Temp 36.8 Pulse 88 Resp 18 B/P (MAP) 146/90 (108) Pulse Ox 99 O2 Delivery Room Air Capillary Refill : Less Than 3 Seconds Blood Pressure Mean: 108 Progress Note : Progress Note DISCUSSED ANTICIPATED COURSE, SYMPTOMATIC TREATMENT, NEED FOR FOLLOW UP WITH UROLOGIST FOR FURTHER EVALUATION--THEY ARE ESTABLISHED WITH [facility] K[facility] PRATHER IN [place], ADVISED THAT [place] HAS UROLOGY SERVICES THERE AND ADVISED TO CALL ON THURSDAY TO SCHEDULE AN APPOINTMENT REVIEWED PRIOR RECORDS, MOST ARE ER VISITS RELATED TO PRIOR CARDIAC ISSUES. Departure Impression Primary Impression: Nodule of shaft of penis Disposition: HOME, SELF-CARE Condition: Stable Departure-Patient Inst. Decision time for Depature: 03:12 Referrals: KEN PRATHER (PCP/Family) Primary Care Physician Patient Instructions: General (DC) Add. Discharge Instructions: FOLLOW UP WITH UROLOGIST OF CHOICE FOR FURTHER EVALUATION. [facility] All discharge instructions reviewed with patient and/or family. Voiced understanding. BARB MARMOLEJO DO Jan 25, 2023 03:15
== END 2023-01-25 03:20 | disposition home or self-care (01) ==
LOC: EDUNIT# 02:52 → ER 02:55
DX: N48.89 Other specified disorders of penis (principal)
CPT/HCPCS: 99283